=== PATIENT | female | born 1960 | race Caucasian/White ===

== ENCOUNTER 2019-03-12 07:40 | Outpatient (CLI) | payer OTHER ==
[~2019-03-12] VITALS: Ht 165.1 cm; Wt 82.7 kg
[2019-03-12] MEDS ORDERED: ASPIRIN 81M81 MG/TA2 PO (08:26)
[2019-03-12] MEDS ORDERED: PROAMATINE 5MG T5 MG PO (08:27)
[2019-03-12] MEDS ORDERED: FERROUS SU325 MG/TAB PO (08:28)
[2019-03-12] MEDS ORDERED: VITAMIN B12 1541 TAB PO (08:29)
[2019-03-12] MEDS ORDERED: OS-CAL 500 + D1 TAB PO (08:29)
[2019-03-12] MEDS ORDERED: TYLENOL 500MG500 MG PO (08:30)
[2019-03-12 08:34] VITALS: BP 122/79; PULSE 62; TEMP 98.2
[2019-03-12] MEDS ORDERED: CEPHALEXIN500 M1 PO (09:02)
[2019-03-12 09:25] VITALS: BP 125/82; PULSE 60; TEMP 98.2
--- NOTE | 2019-03-12 09:30 | NUR ---
Discharge instructions given. Transferred to private car by nicol
== END 2019-03-12 09:30 | disposition home or self-care (01) ==
LOC: COL.CAR 07:40
DX: R55 Syncope and collapse (principal); I48.0 Paroxysmal atrial fibrillation; I10 Essential (primary) hypertension; J30.2 Other seasonal allergic rhinitis; I08.3 Combined rheumatic disorders of mitral, aortic and tricuspid valves; Z79.82 Long term (current) use of aspirin; Z77.22 Contact with and (suspected) exposure to environmental tobacco smoke (acute) (chronic); Z82.49 Family history of ischemic heart disease and other diseases of the circulatory system
CPT/HCPCS: C1764

== ENCOUNTER 2020-04-09 07:35 | Outpatient (CLI) | payer OTHER ==
[~2020-04-09] VITALS: Ht 165.2 cm; Wt 78.0 kg
[~2020-04-09 07:35] MED LIST: ASPIRIN 81M81 MG/TA2 PO; CEPHALEXIN500 M1 PO; FERROUS SU325 MG/TAB PO; OS-CAL 500 + D1 TAB PO; PROAMATINE 5MG T5 MG PO; TYLENOL 500MG500 MG PO; VITAMIN B12 1541 TAB PO
[2020-04-09 07:56] VITALS: BP 124/79; PULSE 64; TEMP 98.1
[2020-04-09] MEDS ORDERED: SYNTHROID0.1 MG/TAB PO (08:12)
[2020-04-09] MEDS ORDERED: FLONASE NASAL S16 GM NS (08:12)
[2020-04-09] MEDS ORDERED: HCTZ 25MG TAB25 MG PO (08:13)
[2020-04-09] MEDS ORDERED: MAG-OX 400400 MG/TAB PO (08:14)
[2020-04-09] MEDS ORDERED: NATURAL IRON65 MG (08:15)
[2020-04-09] MEDS ORDERED: ZYRTEC 10MG10 MG PO (08:15)
[2020-04-09 10:44] VITALS: BP 110/55; PULSE 64; TEMP 97.3
--- NOTE | 2020-04-09 10:59 | NUR ---
Patient provided with discharge instructions. Escorted to exit; patient requesting to ambulate. Gait steady.
== END 2020-04-09 11:01 | disposition home or self-care (01) ==
LOC: COL.CAR 07:35
DX: R55 Syncope and collapse (principal); I10 Essential (primary) hypertension; E07.9 Disorder of thyroid, unspecified; Z88.5 Allergy status to narcotic agent; Z79.82 Long term (current) use of aspirin; Z79.899 Other long term (current) drug therapy

== ENCOUNTER → 2021-02-27 | Outpatient (CLI) | payer OTHER ==
[2005-07-09 10:05] VITALS: TEMP 98.5
[~2021-02-27] MED LIST changes: +FLONASE NASAL S16 GM NS; +HCTZ 25MG TAB25 MG PO; +MAG-OX 400400 MG/TAB PO; +NATURAL IRON65 MG; +SYNTHROID0.1 MG/TAB PO; +ZYRTEC 10MG10 MG PO
== END ==
LOC: COL.LAB 10:10
DX: Z01.812 Encounter for preprocedural laboratory examination (principal); Z20.822 Contact with and (suspected) exposure to COVID-19

== ENCOUNTER 2023-11-29 08:31 | Day surgery (SDC) | payer MEDICARE, OTHER ==
[~2023-11-29] VITALS: Ht 165.1 cm; Wt 81.7 kg
[~2023-11-29 08:31] MED LIST changes: +BACTRIM 400 MG-1 TAB PO; +BENADRYL25 M2 PO; +CALCIUM 600 MG1 EAC2 PO; +CLARITIN 1010 MG/TAB PO; +COLACE 100100 MG/CAP PO; +LIPITOR20 MG PO; +MASON NATURAL2000 IU PO; +NATURAL POTASS595 MG PO; +PREMARIN VAG42.5 GM VG; +REFRESH TEARS 330 ML OP; +TOPROL XL 25MG25 MG PO; +TYLENOL PM EXTR1 TA1 PO; +VANICREAM1 CRE TOP
[2023-11-29] MEDS ORDERED: CARAFATE 1GM1 G PO (09:56)
[2023-11-29] MEDS ORDERED: ZOFRAN 4MG T4 MG/TAB PO (09:58)
[2023-11-29] MEDS ORDERED: PRIL40 PO (09:58)
[2023-11-29] MEDS ORDERED: CULTURELLE1 EAC1 PO (10:01)
[2023-11-29 10:24] VITALS: BP 138/81; PULSE 68; TEMP 98.3
[2023-11-29 10:34] VITALS: TEMP 97.6
[2023-11-29 10:40] VITALS: BP 119/78; PULSE 61
[2023-11-29 10:55] VITALS: BP 124/74; PULSE 60
[2023-11-29 11:10] VITALS: BP 121/74; PULSE 65
--- NOTE | 2023-11-29 12:03 | NUR ---
[id number]: PT TO [facility] FROM ENDO S/P EGD WITH DILATION, BIOPSY A&O, PLACED ON MONITOR, VSS ON RA RECEIVED REPORT AND ASSUMED CARE OF PT FROM LIVIA DECKER S/O IN WR PROVIDED FLUIDS/FOOD, TOLERATING WELL IN TO SPEAK WITH PT AFTER PROCEDURE PT HAS REMAINED A&O, NAD, VSS ON RA, TOLERATING PO, IS WITHOUT SIGNIFICANT COMPLAINT, WITH STEADY GAIT THRU OUT STAY IV D/C'D. D/C INSTRUCTIONS, ANY FOLLOW UP REVIEWED AND HANDED TO PT. ALL QUESTIONS AND CONCERNS ADDRESSED TO PT SATISFACTION. TAKEN TO EXIT VIA W/C WITH ALL BELONGINGS AND PAPERWORK IN HAND, ASSISTED INTO PASSENGER SEAT OF POV. S/O TO DRIVE HOME.
== END 2023-11-29 11:30 | disposition home or self-care (01) ==
LOC: SDCO 08:31
DX: K31.89 Other diseases of stomach and duodenum (principal); K25.7 Chronic gastric ulcer without hemorrhage or perforation; R63.4 Abnormal weight loss; Z98.890 Other specified postprocedural states
CPT/HCPCS: C1726; J2704; J7120